=== PATIENT | male | born 1965 | race Caucasian/White ===

== ENCOUNTER 2020-09-03 13:37 | Emergency (ER) | payer OTHER ==
[~2020-09-03] VITALS: Ht 180.3 cm; Wt 99.8 kg
[2020-09-03] MEDS ORDERED: CEPHALEXIN500 MG PO (14:43)
[2020-09-03] MEDS ORDERED: ACYCLOVIR 400400 MG PO (14:43)
[2020-09-03 14:56] VITALS: BP 143/84
== END 2020-09-03 14:58 | disposition home or self-care (01) ==
LOC: M.ERS 13:37
DX: B02.9 Zoster without complications (principal); F17.210 Nicotine dependence, cigarettes, uncomplicated; Z88.7 Allergy status to serum and vaccine